=== PATIENT | female | born 1940 | race Caucasian/White ===

== ENCOUNTER 2017-12-22 01:24 | Inpatient (IN) | payer OTHER, MEDICAID ==
[~2017-12-22] VITALS: Ht 157.5 cm; Wt 173.7 kg
[2017-12-22] VITALS (7 sets, daily range): BP systolic 108–149
--- NOTE | 2017-12-22 01:30 | NUR ---
Patient to ER bed 6 to gown for evaluation. Side rails up.
--- NOTE | 2017-12-22 01:35 | NUR ---
ED MD Handley at bedside for medical evaluation.
--- NOTE | 2017-12-22 01:40 | NUR ---
Patient to ER via EMT ambulance sent in from [facility] for evaluation of abnormal labs and swelling to her legs. Patient is awake, alert and oriented in no acute distress, vital signs stable, respirations even and unlabored, skin warm and dry to touch. Patient has been seen and evaluated by Dr Handley. Will continue to observe and assess. Patient on quality assurance monitor final, BP monitor and pulse oximeter.
--- NOTE | 2017-12-22 01:50 | NUR ---
#22 gauge angiocath placed to right hand. Use of asceptic technique. Opsite placed over site. Blood return noted. Blood for lab drawn from site. Flushed with 10 cc of normal saline. No evidence of infiltration noted. Patient tolerated well.
[2017-12-22] MEDS ORDERED: PIOG30TA70 PO (02:07)
[2017-12-22] MEDS ORDERED: NEU300 PO (02:07)
[2017-12-22] MEDS ORDERED: METO25TA6 PO (02:07)
[2017-12-22] MEDS ORDERED: SIMV10TA2 PO (02:07)
[2017-12-22] MEDS ORDERED: Voltaren Gel 1 % TD (02:07)
[2017-12-22] MEDS ORDERED: MULT1CAP34 PO (02:07)
[2017-12-22] MEDS ORDERED: MOM PO (02:07)
[2017-12-22] MEDS ORDERED: BUME2TAB3 PO (02:07)
[2017-12-22] MEDS ORDERED: BENZ1LOZ58 MM (02:07)
[2017-12-22] MEDS ORDERED: CRAN450C PO (02:07)
[2017-12-22] MEDS ORDERED: RIVA20TA PO (02:07)
[2017-12-22] MEDS ORDERED: DIPH25CA83 PO (02:07)
[2017-12-22] MEDS ORDERED: ESCI10TA PO (02:07)
[2017-12-22] MEDS ORDERED: CALC-823 PO (02:07)
[2017-12-22] MEDS ORDERED: GUAI5SYR PO (02:07)
[2017-12-22] MEDS ORDERED: ACET-2634 PO (02:07)
[2017-12-22] MEDS ORDERED: TRAMADOL HCL PO (02:07)
[2017-12-22] MEDS ORDERED: HYDR-2489 PO (02:07)
[2017-12-22] MEDS ORDERED: FURO-149 PO (02:07)
[2017-12-22] MEDS ORDERED: POTA8TAB4 PO (02:07)
[2017-12-22] MEDS ORDERED: IPRA3AMP9 INH (02:07)
--- NOTE | 2017-12-22 02:07 | NUR ---
Radiology at bedside for CXR.
--- NOTE | 2017-12-22 02:07 | NUR ---
Medication reconciliation completed with information provided by facility. Any prior medication reconciliation on file was reviewed and corrected.
--- NOTE | 2017-12-22 02:20 | NUR ---
# 14 FR In and Out catheter with use of sterile technique. Immediate return of 300 ml yellow urine noted. Urine sample collected and sent to lab. Pt tolerated procedure well. Patient unable to toilet self.
[2017-12-22 02:26] LABS: BASOPHILS % (AUTO) 1.1 % (0.0-2.0); EOSINOPHILS # (AUTO) 0.2 K/uL (0.0-0.4); EOSINOPHILS % (AUTO) 4.5 % (0.0-4.0); HEMATOCRIT 43.2 % (36-48); LYMPHOCYTES # (AUTO) 1.4 K/uL (1.0-5.5); LYMPHOCYTES % (AUTO) 30.7 % (20.5-51.5); MEAN CORPUSCULAR HEMOGLOBIN 33 pg (27-31); MEAN CORPUSCULAR HGB CONC 32 % (32-36); MEAN CORPUSCULAR VOLUME 100 fL (79.0-98.0); MONOCYTES # (AUTO) 0.4 K/uL (0.0-1.0); MONOCYTES % (AUTO) 10.1 % (1.7-9.3); NEUTROPHILS # (AUTO) 2.4 K/uL (1.8-7.7); NEUTROPHILS % (AUTO) 53.6 % (40.0-70.0); PLATELET COUNT (AUTO) 132 K/uL (130-430); RED BLOOD CELL COUNT(AUTO) 4.31 MIL/uL (4.2-6.2); WHITE BLOOD COUNT (AUTO) 4.4 K/uL (4.8-10.8)
--- NOTE | 2017-12-22 02:30 | NUR ---
Vascular supervisor microbiology technologists at bedside for exam. Awaiting results and dispo.
[2017-12-22 03:04] LABS: BILIRUBIN,URINE NEGATIVE (NEGATIVE); BLOOD, URINE NEGATIVE (NEGATIVE); CLARITY/URINE CLEAR (CLEAR); COLOR,URINE YELLOW (YELLOW); GLUCOSE,URINE NEGATIVE (NEGATIVE); KETONES,URINE NEGATIVE (NEGATIVE); LEUKOCYTE ESTERASE ,URINE NEGATIVE (NEGATIVE); NITRITE, URINE NEGATIVE (NEGATIVE); PROTEIN URINE NEGATIVE (NEGATIVE); UROBILINOGEN,URINE 0.2 (0.2-1.0)
[2017-12-22 03:20] LABS: ANION GAP 4 (5-15); CALCIUM 8.9 mg/dL (8.4-11.0); CHLORIDE 97 mmol/L (98-107); CREATININE 2.51 mg/dL (0.55-1.30); GLUCOSE 121 mg/dL (70-99); POTASSIUM 5.3 mmol/L (3.5-5.1); SODIUM SERUM 134 mmol/L (136-145)
--- NOTE | 2017-12-22 03:20 | NUR ---
Recieved report from Bala EPSTEIN. Will assume care at this time.
[2017-12-22 03:31] LABS: ALANINE AMINOTRANSFERASE 12 U/L (12-78); ASPARTATE AMINOTRANSFERASE 15 U/L (10-37); TOTAL BILIRUBIN 0.5 mg/dL (0.0-1.0)
[2017-12-22 03:36] LABS: INR 1.3 (0.8-1.2); UREA NITROGEN, BLOOD 104 mg/dL (8-21)
[2017-12-22 03:38] LABS: PROTHROMBIN TIME 13.7 SECS (9.5-12.5)
--- NOTE | 2017-12-22 04:00 | NUR ---
Patient resting quietly in bed. Verbalizes no need at this time. Appears in no acute distress.
--- NOTE | 2017-12-22 04:13 | NUR ---
End of life care decisions discussed with patient by Dr. Handley. Opportunity for questions and concerns addressed. Patient's code status is Full code paperwork completed and placed in chart.
[2017-12-22] MEDS ORDERED: NACL 0.9% 1,000 ML IV ONE (04:21)
[2017-12-22] MEDS ORDERED: INSULIN ASPART 100 UNITS/ML, 10 ML VIAL (NovoLOG) SUBCUT PRN (04:30)
--- NOTE | 2017-12-22 04:46 | NUR ---
ADMISSION NOTE Received patient from ER via gurney. Patient admitted with diagnosis of Abnormal Labs. Patient is awake, alert, oriented X 4. Patient oriented to hospital room, call light, toileting, pain management and safety-teach back done. Patient informed that Daniela will be her nurse and that their room number is 120-A. Personal belongings checked and Belongings List documented. Call light within reach.
--- NOTE | 2017-12-22 04:50 | NUR ---
Patient will be admitted to care of Dr. Howard. Admitted to Telemetry unit. Will go to room 120A. Belongings list completed. Summary report printed. Report will be given at bedside. Transfer to telemetry via ACLS protocol. Licensed nurse present. IV present no signs or symptoms of infiltration.
--- NOTE | 2017-12-22 05:15 | NUR ---
OPENING NOTE Received report from Kiah. Patient resting in bed awake, alert, oriented x4. Fall, safety, aspiration precautions in place. Bed in lowest position, brake on, alarm on, call light within reach. Will continue to monitor.
--- NOTE | 2017-12-22 05:41 | NUR ---
CONSULTATION PAGED/CALLED Reason for Consultation: ARF, HYPER [place]AL[place]IA Person Who was Notified: DANA Consulting Physician: DR. HORAN; ON-CALL DR. RESENDIZ Ordering Physician: DR. WIGGINS
[2017-12-22] MEDS ORDERED: MILK OF MAGNESIA 30 ML UDC PO PRN (06:00)
[2017-12-22] MEDS ORDERED: ACETAMINOPHEN 500 MG TABLET PO PRN (06:00)
--- NOTE | 2017-12-22 06:00 | NUR ---
Called [facility] and spoke to Ernestine. Per Ernestine, shingles has been resolved on right abd, patient not in isolation at facility. Patient received flu shot on 10/20/17.
[2017-12-22] MEDS ORDERED: HYDROcodone/ACETAMIN 10-325 MG TAB PO PRN (06:15)
[2017-12-22 07:15] LABS: ANION GAP 8 (5-15); CALCIUM 8.7 mg/dL (8.4-11.0); CHLORIDE 98 mmol/L (98-107); CREATININE 2.39 mg/dL (0.55-1.30); GLUCOSE 99 mg/dL (70-99); POTASSIUM 4.7 mmol/L (3.5-5.1); SODIUM SERUM 137 mmol/L (136-145); UREA NITROGEN, BLOOD 100 mg/dL (8-21)
--- NOTE | 2017-12-22 07:54 | NUR ---
CLOSING NOTE Gave report to Marisel. Patient resting in bed awake, alert, oriented x4, eating breakfast. Breathing unlabored and even on room air. No signs of distress, no needs at this time. Fall and safety precautions in place. Bed in lowest position, brake on, alarm on, call light within reach. IVF infusing as ordered. Endorsed care to day shift nurse.
[2017-12-22] MEDS ORDERED: DEXTROSE 50%-WATER 50 ML DISP.SYRIN IVP PRN ×2 (08:00)
[2017-12-22] MEDS ORDERED: GLUCOSE 15 GM GEL (in 37.5 GM TUBE) PO PRN ×2 (08:00)
--- NOTE | 2017-12-22 08:05 | NUR ---
INITIAL ROUNDS Received pt AAOx4, no s/s resp distress, very mild c/o pain-tolerable per pt-stated from the shingles. Plan of care for the day reviewed with pt-she verbalized her understanding. Noted dressing to lower right buttocks, right calf and behind left knee-all clean, dry and intact. Noted edema to BLE. Pain management, disease process, skin and safety discussed teach back done. Pt placed on bed hathaway and voided-states she does not walk and uses a Yumiko lift to get into wheelchair at [facility]. Dr. Howard here and examining pt. Call light within reach.
[2017-12-22] MEDS ORDERED: ACETAMINOPHEN 650 MG/20.3 ML UDC PO PRN (08:30)
[2017-12-22] MEDS ORDERED: RIVAROXABAN 10 MG TABLET PO SCH (09:00)
[2017-12-22] MEDS: DIPHENHYDRAMINE HCL 25 MG CAPSULE PO PRN (09:31)
[2017-12-22] MEDS: CITALOPRAM HYDROBROMIDE 20 MG TABLET PO SCH (09:32)
[2017-12-22] MEDS: METOPROLOL TARTRATE 25 MG TABLET PO SCH ×2 (09:32→21:27)
[2017-12-22] MEDS: ENOXAPARIN SODIUM 30 MG/0.3 ML SYRINGE SUBCUT SCH (09:33)
[2017-12-22] MEDS: HYDROcodone/ACETAMIN 10-325 MG TAB PO PRN ×2 (09:38→18:57)
[2017-12-22] MEDS: NACL 0.9% 1,000 ML IV SCH ×2 (09:39→19:08)
--- NOTE | 2017-12-22 10:11 | NUR ---
Nutrition Update Karri Scale 12 noted. Pt admitted for ARF. Diet: [facility] BMI: 69 kg/m2 RD to follow per nutrition care standards.
--- NOTE | 2017-12-22 12:20 | NUR ---
ROUNDS Pt resting quietly in bed, cough noted-will request breathing treatments for pt. Pt's daughter at bedside. Pt continues to c/o sporadic itchiness. Pt placed on bedpan and voided. Pt cleaned up and repositioned for skin care and comfort. Needs met, call light within reach.
[2017-12-22] MEDS: IPRATROPIUM/ALBUTEROL SULFATE 3 ML AMPUL.NEB (DUONEB) INH PRN ×2 (13:15→19:42)
--- NOTE | 2017-12-22 13:25 | NUR ---
ROUNDS Pt resting quietly in bed with no s/s resp distress, pt with cough-pt requesting a breathing treatment-RT called and are coming now. No c/o pain or discomfort. Pt's daughter at bedside and requesting for Dr. Howard to call her with an update on her mom's condition.-note left on outside of chart for MD. Call light within reach.
--- NOTE | 2017-12-22 16:30 | NUR ---
ROUNDS Pt resting quietly with no s/s resp distress, no c/o pain or discomfort. No changes. Call light within reach.
[2017-12-22] MEDS: SIMVASTATIN 10 MG TABLET PO SCH (18:55)
[2017-12-22] MEDS: GABAPENTIN 300 MG CAPSULE PO SCH (18:55)
--- NOTE | 2017-12-22 19:10 | NUR ---
CLOSING NOTE Pt in bed with no s/s resp distress, c/o pain to her left shoulder and chest area-pt given [place] as ordered. Pt placed on bedpan to void. Needs met, call light within reach.
--- NOTE | 2017-12-22 19:50 | NUR ---
Opening notes Pt asleep, easily arousable. VSS, afebrile No acute distress noted. Pt had a breathing txmt. Pt denies pain at this time. Pt on low air mattress. IV fluids infusing on R. hand 22G no infiltration noted. Bed low, locked. Call light within easy reach. Will continue to monitor.
--- NOTE | 2017-12-22 21:00 | NUR ---
Wound care Pt AAO. Dressing to Right posterior upper thigh came off. Applied foam dressing. Dressing to R. calf blister and posterior knee C/D/I. Interdry dressing applied to margarita underarms, margarita breast folds and margarita abd folds. L arm bruising noted intact. Will continue to monitor.
--- NOTE | 2017-12-22 21:30 | NUR ---
Accucheck Blood sugar checked 146. No indication for insulin per protocol. Will continue to monitor.
[2017-12-23 00:10] VITALS: BP_SYST 134
--- NOTE | 2017-12-23 01:40 | NUR ---
Hearing Aids Pt has margarita Hearing aids at the bedside.
[2017-12-23] MEDS: HYDROcodone/ACETAMIN 10-325 MG TAB PO PRN ×2 (03:39→11:17)
--- NOTE | 2017-12-23 03:39 | NUR ---
Pain mgmt Pt asleep, easily arousable. Pt c/o Pain L. shoulder 10/20, medicated with [place] 10/325mg as needed. Call light within easy reach. To monitor.
[2017-12-23] MEDS: NACL 0.9% 1,000 ML IV SCH ×2 (03:52→07:57)
--- NOTE | 2017-12-23 06:19 | NUR ---
Closing notes Pt asleep, easily arousable. No s/s distress noted. Accucheck 113, no indication for insulin per protocol. NS infusing on R. hand 22G no infiltration noted. Phani hearing aid at bedside. Pt incontinent of urine, pericare provided as needed. Pt able to assist with turning. Call light within reach. To endorse to am nurse.
[2017-12-23 06:47] LABS: BASOPHILS % (AUTO) 0.8 % (0.0-2.0); EOSINOPHILS # (AUTO) 0.1 K/uL (0.0-0.4); EOSINOPHILS % (AUTO) 2.6 % (0.0-4.0); HEMATOCRIT 42.9 % (36-48); HEMOGLOBIN 13.7 g/dL (12.0-16.0); LYMPHOCYTES # (AUTO) 0.8 K/uL (1.0-5.5); MEAN CORPUSCULAR HEMOGLOBIN 32 pg (27-31); MEAN CORPUSCULAR HGB CONC 32 % (32-36); MEAN CORPUSCULAR VOLUME 100 fL (79.0-98.0); MONOCYTES # (AUTO) 0.5 K/uL (0.0-1.0); MONOCYTES % (AUTO) 10.5 % (1.7-9.3); NEUTROPHILS # (AUTO) 2.9 K/uL (1.8-7.7); NEUTROPHILS % (AUTO) 67.1 % (40.0-70.0); PLATELET COUNT (AUTO) 128 K/uL (130-430); RED BLOOD CELL COUNT(AUTO) 4.29 MIL/uL (4.2-6.2); RED CELL DISTRIBUTION WIDTH 14.1 % (9.0-15.0); WHITE BLOOD COUNT (AUTO) 4.3 K/uL (4.8-10.8)
[2017-12-23 07:08] LABS: ALANINE AMINOTRANSFERASE 15 U/L (12-78); ALBUMIN 3.1 g/dL (3.4-4.8); ANION GAP 7 (5-15); ASPARTATE AMINOTRANSFERASE 16 U/L (10-37); CALCIUM 8.9 mg/dL (8.4-11.0); CHLORIDE 100 mmol/L (98-107); CREATININE 1.94 mg/dL (0.55-1.30); GLUCOSE 118 mg/dL (70-99); POTASSIUM 4.6 mmol/L (3.5-5.1); SODIUM SERUM 136 mmol/L (136-145); TOTAL BILIRUBIN 0.4 mg/dL (0.0-1.0); UREA NITROGEN, BLOOD 84 mg/dL (8-21)
[2017-12-23] MEDS: IPRATROPIUM/ALBUTEROL SULFATE 3 ML AMPUL.NEB (DUONEB) INH PRN (07:21)
--- NOTE | 2017-12-23 07:40 | NUR ---
AM NOTES: PATIENT AWAKE, ALERT, ORIENTED AND LYING IN BED. SIT UP FOR BREAKFAST. DENIES ANY PAIN, SHORTNESS OF BREATH OR CHEST PAIN. BED REST, IVF INFUSING WELL. BRUISES NOTED IN BOTH ARMS. SAFETY PRECAUTIONS OBSERVED. CALL LIGHT IN REACH, BED ALARM ON AND ENCOURAGE TO CALL FOR HELP NEEDED.
[2017-12-23 08:00] VITALS: BP_SYST 154
--- NOTE | 2017-12-23 08:00 | NUR ---
NOTES: OS SATURATION IS RANGING 88-90% IN ROOM AIR. APPLIED O2 2L/MIN, JUST HAD BREATHING TREATMENT. PT HAVE COUGH AND WHEEZES.
[2017-12-23] MEDS: METOPROLOL TARTRATE 25 MG TABLET PO SCH ×2 (08:43→20:53)
[2017-12-23] MEDS: CITALOPRAM HYDROBROMIDE 20 MG TABLET PO SCH (08:43)
[2017-12-23] MEDS: ENOXAPARIN SODIUM 30 MG/0.3 ML SYRINGE SUBCUT SCH (08:44)
--- NOTE | 2017-12-23 08:52 | NUR ---
IVF NOTES; CHANGED IVF RATE TO 50ML/HR ORDERED.
--- NOTE | 2017-12-23 10:20 | NUR ---
RN ROUNDS: PATIENT IN BED, WITH EYES CLOSED. NO SIGNS OF DISTRESS, BREATHING IS UNLABORED. WILL CONTINUE TO MONITOR.
--- NOTE | 2017-12-23 11:53 | NUR ---
NOTES: ASSISTED PT ON BED MARTIN AND VOIDING WELL AROUND 250ML. CLEANED AND REPOSITIONED. CHANGED DRESSING ON ALL WOUNDS.
[2017-12-23 12:05] VITALS: BP_SYST 120
--- NOTE | 2017-12-23 14:30 | NUR ---
IV NOTES: PATIENT IV WAS PULLED OUT, STARTED NEW ONE ON RIGHT FOREARM WITH GAUGE 24 X 1 ATTEMPT.
[2017-12-23] MEDS: DIPHENHYDRAMINE HCL 25 MG CAPSULE PO PRN (14:44)
--- NOTE | 2017-12-23 15:00 | NUR ---
MD ROUNDS DR. WIGGINS HERE AND MAKING ROUNDS. REMIND DR. WIGGINS TO CALL PT'S DAUGHTER.
[2017-12-23 16:39] VITALS: BP_SYST 115
[2017-12-23] MEDS: SIMVASTATIN 10 MG TABLET PO SCH (17:44)
[2017-12-23] MEDS: GABAPENTIN 300 MG CAPSULE PO SCH (17:44)
--- NOTE | 2017-12-23 18:48 | NUR ---
CLOSING NOTES IN BED, EATING DINNER. IVF INFUSING WELL. NO ACUTE DISTRESS NOTED. ALL NEEDS MEET. NEEDS ATTENDED. ENDORSE.
--- NOTE | 2017-12-23 19:15 | NUR ---
OPENING NOTE Patient resting on the bed and receiving breathing treatment. Skin warm and dry to touch. IV intact to RFA, no redness, no swelling, no drainage. On NS at 50ml/hr, infusing well. On contact isolation for MRSA of nares. Safety measure maintained. Bed locked in low position, side rails up, bed alarm on. Call light within reached. Will continue to monitor.
[2017-12-23 20:00] VITALS: BP_SYST 113
[2017-12-23] MEDS: DOXYCYCLINE HYCLATE 100 MG CAPSULE PO SCH (20:51)
[2017-12-23] MEDS: MUPIROCIN 2% TOPICAL OINTMENT 22 GM NS SCH (20:54)
[2017-12-23] MEDS ORDERED: DOXYCYCLINE HYCLATE 100 MG CAPSULE PO SCH (21:00)
--- NOTE | 2017-12-23 21:00 | NUR ---
SN=[id number], NO INSULIN COVERAGE NEEDED PER SLIDING SCALE.
--- NOTE | 2017-12-23 22:15 | NUR ---
ROUND Patient resting on the bed with eyes closed. No acute distress. Respiration even and unlabored. On O2 2L/min via NC. IV intact, IVF infusing well. On contact isolation. Safety measure maintained. Bed locked in low position, side rails up, bed alarm on. Call light within reached. Continue to monitor.
--- NOTE | 2017-12-24 00:05 | NUR ---
TURNED AND REPOSITIONED PATIENT After cleaned patient, turned and repositioned done. No acute distress. Continue on O2 2L/min via NC. IV intact, IVF infusing well. Contact isolation maintained. Safety measure maintained. Call light within reached. Bed locked in low position, side rails up, bed alarm on. Continue to monitor.
[2017-12-24 00:28] VITALS: BP_SYST 130
--- NOTE | 2017-12-24 02:20 | NUR ---
ROUND Patient resting on the bed with eyes closed. No acute distress. Respiration even and unlabored. On O2 2L/min via NC. IV intact, IVF infusing well. On contact isolation precaution. Safety measure maintained. Bed locked in low position, side rails up, bed alarm on. Call light within reached. Continue to monitor.
--- NOTE | 2017-12-24 04:00 | NUR ---
TURNED AND REPOSITIONED PATIENT Turned and repositioned done. No acute distress. Continue on O2 2L/min via NC. IV intact, IVF infusing well. Contact isolation maintained. Safety measure maintained. Call light within reached. Bed locked in low position, side rails up, bed alarm on. Continue to monitor.
[2017-12-24] MEDS: HYDROcodone/ACETAMIN 10-325 MG TAB PO PRN ×2 (05:31→22:58)
--- NOTE | 2017-12-24 05:32 | NUR ---
NORCO GIVEN Patient c/o generalized pain /, [place] 10/325mg 1tab Po given as ordered. No acute distress. Respiration even and unlabored. IV intact, IVF infusing well. Continue on contact isolation. Safety measure maintained. Bed locked in low position, side rails up, bed alarm on. Call light within reached. Continue to monitor.
[2017-12-24 06:29] LABS: BASOPHILS % (AUTO) 0.6 % (0.0-2.0); EOSINOPHILS # (AUTO) 0.2 K/uL (0.0-0.4); EOSINOPHILS % (AUTO) 2.6 % (0.0-4.0); HEMATOCRIT 39.2 % (36-48); HEMOGLOBIN 12.7 g/dL (12.0-16.0); LYMPHOCYTES # (AUTO) 1.1 K/uL (1.0-5.5); LYMPHOCYTES % (AUTO) 18.3 % (20.5-51.5); MEAN CORPUSCULAR HEMOGLOBIN 32 pg (27-31); MEAN CORPUSCULAR HGB CONC 32 % (32-36); MEAN CORPUSCULAR VOLUME 101 fL (79.0-98.0); MONOCYTES # (AUTO) 0.5 K/uL (0.0-1.0); MONOCYTES % (AUTO) 9.3 % (1.7-9.3); NEUTROPHILS % (AUTO) 69.2 % (40.0-70.0); PLATELET COUNT (AUTO) 129 K/uL (130-430); RED CELL DISTRIBUTION WIDTH 14.3 % (9.0-15.0); WHITE BLOOD COUNT (AUTO) 5.8 K/uL (4.8-10.8)
--- NOTE | 2017-12-24 06:55 | NUR ---
CLOSING NOTE Patient resting on the bed. No acute distress. Odd O2 at this time. Patient removed herself. Skin warm and dry to touch. IV intact to RFA, no redness, no swelling, no drainage. On NS at 50ml/hr, infusing well. On contact isolation for MRSA of nares. All needs met. Hourly rounding during shift. Safety measure maintained. Bed locked in low position, side rails up, bed alarm on. Call light within reached. Will endorse to morning shift nurse.
[2017-12-24] MEDS: NACL 0.9% 1,000 ML IV SCH ×2 (06:56→22:53)
[2017-12-24 07:09] LABS: ALANINE AMINOTRANSFERASE 18 U/L (12-78); ALBUMIN 2.9 g/dL (3.4-4.8); ANION GAP 6 (5-15); ASPARTATE AMINOTRANSFERASE 19 U/L (10-37); CALCIUM 8.5 mg/dL (8.4-11.0); CHLORIDE 103 mmol/L (98-107); CREATININE 1.96 mg/dL (0.55-1.30); GLUCOSE 103 mg/dL (70-99); POTASSIUM 5.5 mmol/L (3.5-5.1); SODIUM SERUM 137 mmol/L (136-145); TOTAL BILIRUBIN 0.4 mg/dL (0.0-1.0); UREA NITROGEN, BLOOD 85 mg/dL (8-21)
[2017-12-24] MEDS: IPRATROPIUM/ALBUTEROL SULFATE 3 ML AMPUL.NEB (DUONEB) INH PRN (07:27)
--- NOTE | 2017-12-24 07:40 | NUR ---
Notes patient resting in bed, still wants to sleep and refusing to eat for now, breathing treatment ongoing, IV fluids infusing well, no acute distress noted, bed alarm on, call light within reach, encouraged patient to call as needed.
[2017-12-24 08:00] VITALS: BP_SYST 102
--- NOTE | 2017-12-24 08:46 | NUR ---
Spoke to Dr. Abreu re lab results/ new orders received
[2017-12-24] MEDS ORDERED: SODIUM POLYSTYRENE SULFONATE 15 GM/60 ML UDBTL PO ONE (09:00)
[2017-12-24] MEDS: MUPIROCIN 2% TOPICAL OINTMENT 22 GM NS SCH ×2 (09:31→22:52)
[2017-12-24] MEDS: ENOXAPARIN SODIUM 30 MG/0.3 ML SYRINGE SUBCUT SCH (09:32)
[2017-12-24] MEDS: DOXYCYCLINE HYCLATE 100 MG CAPSULE PO SCH ×2 (09:33→22:51)
[2017-12-24] MEDS: CITALOPRAM HYDROBROMIDE 20 MG TABLET PO SCH (09:33)
[2017-12-24] MEDS: METOPROLOL TARTRATE 25 MG TABLET PO SCH ×2 (09:34→22:52)
--- NOTE | 2017-12-24 10:14 | NUR ---
Notes assisted patient with bed hathaway, patient voided with good amount of urine, cleaned and repositioned for comfort, denies any pain or discomfort, bed in lowest position, call light within reach, bed alarm on, fall and aspiration precautions in place, wants to rest at this time, will continue to monitor.
--- NOTE | 2017-12-24 12:21 | NUR ---
Notes patient resting in bed, blood glucose check completed, patient denies any pain or acute distress, will continue to monitor, bed in lowest position, bed alarm on, bed close to nursing station, call light within reach, fall and aspiration precautions in place.
[2017-12-24 12:40] VITALS: BP_SYST 103
--- NOTE | 2017-12-24 14:15 | NUR ---
Notes patient resting in bed, denies any pain or distress, will continue to monitor, bed in lowest position, bed alarm on, bed close to nursing station, three side rails up, fall and aspiration precautions in place.
--- NOTE | 2017-12-24 14:49 | NUR ---
MD rounds Dr. Howard here making rounds, made aware that patient is having wheezing and cough that is moist and is still on IV fluids.
--- NOTE | 2017-12-24 14:54 | NUR ---
Notes MD informed about [place] medications for severe and moderate pain, per MD to keep the order the same.
[2017-12-24] MEDS ORDERED: FUROSEMIDE 40 MG/4 ML VIAL IVP ONE (15:00)
--- NOTE | 2017-12-24 15:11 | NUR ---
Notes spoke to radiology staff, made aware that Dr. Howard wants the x-ray result for today.
--- NOTE | 2017-12-24 15:14 | NUR ---
CONSULT REASON FOR CONSULT: CHF PERSON WHO WAS NOTIFIED: [facility] CONSULTING PHYSICIAN: DR. TOWNSEND/ DR. SLOAN BOG WORKER FOR DR. TOWNSEND VEGETABLE INSPECTOR PHONE NUMBER: [phone] ORDERING PHYSICIAN: DR. WIGGINS
--- NOTE | 2017-12-24 15:53 | NUR ---
Dietitian Recommendations * Recommend CCHO, cardiac diet per LP, RD Please refer to Nutrition Assessment for details.
--- NOTE | 2017-12-24 16:22 | NUR ---
Spoke to Dr. Howard about abnormal ABGs with new orders received.
[2017-12-24 16:53] VITALS: BP_SYST 119
--- NOTE | 2017-12-24 16:55 | NUR ---
Paged Dr. Howard regarding chest x-ray results.
--- NOTE | 2017-12-24 17:43 | NUR ---
Spoke with Dr. Howard regarding chest x-ray, made aware of findings.
--- NOTE | 2017-12-24 17:43 | NUR ---
MD rounds Dr. Eduardo and Dr. Aviles seen patient.
[2017-12-24] MEDS: SIMVASTATIN 10 MG TABLET PO SCH (17:51)
[2017-12-24] MEDS: GABAPENTIN 300 MG CAPSULE PO SCH (17:51)
--- NOTE | 2017-12-24 18:02 | NUR ---
CONSULT REASON FOR CONSULT: ABNORMAL ABGs PERSON WHO WAS NOTIFIED: [facility] CONSULTING PHYSICIAN: DR. TURNER FRUIT OR NUT FARM WORKER PHONE NUMBER: [phone] ORDERING PHYSICIAN: DR. WIGGINS
--- NOTE | 2017-12-24 18:39 | NUR ---
Closing note patient resting in chair, denies any pain or shortness of breath or distress, all needs met throughout shift, will endorse report to oncoming nurse, bed in lowest position, bed alarm on, two side rails up, call light within reach, fall and aspiration precautions in place, bed close to the nursing station.
[2017-12-24 20:01] VITALS: BP_SYST 123
--- NOTE | 2017-12-24 22:15 | NUR ---
PATIENT AWAKE ASSIST FOR BED MARTIN REPOSITION FROM SIDE TO SIDE , LOW WEIGHT LOSS AIR MATRES KEPT CLEAN & DRY NEEDED .
--- NOTE | 2017-12-25 | NUR ---
NORCO 10/325 MG PO ADMINISTER FOR GENERAL DISCOMFORT & HELPFUL OFF LOADING WITH PILLOWS IMPLEMENTED & TOLERATED .
[2017-12-25 00:10] VITALS: BP_SYST 120
[2017-12-25] MEDS: IPRATROPIUM/ALBUTEROL SULFATE 3 ML AMPUL.NEB (DUONEB) INH SCH ×4 (00:56→19:47)
--- NOTE | 2017-12-25 02:48 | NUR ---
Patient on Bi Pap awake on and off HOB kept elevated verbally Responsive chest - movement symmetrical unlabored .
--- NOTE | 2017-12-25 02:52 | NUR ---
Hourly Rounding patient Resting skin dry warm call benjamin with patient .
--- NOTE | 2017-12-25 02:53 | NUR ---
WOUND CARE TO LEFT POSTERIOR KNEE AREA SKIN FOLD OPTI FOAM DSD , APPLIED , SKIN BREAK DOWN IS NOTED .
--- NOTE | 2017-12-25 02:54 | NUR ---
WOUND CARE RIGHT MEDIAL THIGH MADDI AREA SKIN FOLD OPTI FOAM DSD APPLIED , SKIN BREAK DOWN IS NOTED , PATIENT TOLERATED .
--- NOTE | 2017-12-25 03:00 | NUR ---
Z GUARD OINTMENT APPLIED TO SKIN BREAK DOWN BUTTOCKS AREAS , POSITION CHANGE ON SCHEDULE TOLERATED .
--- NOTE | 2017-12-25 05:03 | NUR ---
Reposition & TURNING of patient off loading with pillows heels floating comfort measures tolerated & helpful , PT alert & oriented call benjamin with patient .
[2017-12-25 07:15] VITALS: BP_SYST 128
--- NOTE | 2017-12-25 08:05 | NUR ---
INITIAL NOTE PT RESTING, EASY TO AROUSE, RECEIVING BREATHING TREATMENT AT THIS TIME. NO S/S OF ACUTE DISTRESS OR PAIN. PT FIRST ALLOWED VITALS TO BE TAKEN AND THEN REFUSED BLOOD PRESSURE TO BE TAKEN, STATES IT GETS TOO TIGHT AND HURTS. WILL ATTEMPT TO TAKE BLOOD PRESSURE AT LATER TIME. IVF INFUSING TO RFA 24 GG AT ORDERED RATE. GENERALIZED EDEMA NOTED. CALL LIGHT WITHIN REACH, SAFETY PRECAUTIONS IN PLACE, WILL FOLLOW UP
[2017-12-25 08:16] LABS: BASOPHILS % (AUTO) 0.6 % (0.0-2.0); EOSINOPHILS # (AUTO) 0.1 K/uL (0.0-0.4); HEMATOCRIT 37.8 % (36-48); HEMOGLOBIN 12.4 g/dL (12.0-16.0); LYMPHOCYTES # (AUTO) 1.1 K/uL (1.0-5.5); LYMPHOCYTES % (AUTO) 26.4 % (20.5-51.5); MEAN CORPUSCULAR HEMOGLOBIN 33 pg (27-31); MEAN CORPUSCULAR HGB CONC 33 % (32-36); MEAN CORPUSCULAR VOLUME 100 fL (79.0-98.0); MONOCYTES # (AUTO) 0.5 K/uL (0.0-1.0); MONOCYTES % (AUTO) 11.3 % (1.7-9.3); NEUTROPHILS # (AUTO) 2.6 K/uL (1.8-7.7); NEUTROPHILS % (AUTO) 59.7 % (40.0-70.0); PLATELET COUNT (AUTO) 123 K/uL (130-430); RED BLOOD CELL COUNT(AUTO) 3.79 MIL/uL (4.2-6.2); RED CELL DISTRIBUTION WIDTH 14.3 % (9.0-15.0); WHITE BLOOD COUNT (AUTO) 4.3 K/uL (4.8-10.8)
[2017-12-25 08:17] VITALS: BP_SYST 128
[2017-12-25] MEDS: DOXYCYCLINE HYCLATE 100 MG CAPSULE PO SCH ×2 (09:09→22:43)
[2017-12-25] MEDS: MUPIROCIN 2% TOPICAL OINTMENT 22 GM NS SCH ×2 (09:09→22:44)
[2017-12-25] MEDS: METOPROLOL TARTRATE 25 MG TABLET PO SCH ×2 (09:10→22:43)
[2017-12-25] MEDS: CITALOPRAM HYDROBROMIDE 20 MG TABLET PO SCH (09:10)
--- NOTE | 2017-12-25 09:10 | NUR ---
DR JOHNNY CHEEK, MADE AWARE OF PT CRITICAL ABG RESULTS, MD PREVIOUSLY PAGED TO REPORT RESULTS, NO CALL BACK. MADE AWARE WHEN ROUNDING BEFORE SECOND PAGE. NO NEW ORDER RECEIVED
[2017-12-25] MEDS: ENOXAPARIN SODIUM 30 MG/0.3 ML SYRINGE SUBCUT SCH (09:11)
[2017-12-25 09:14] LABS: ANION GAP 9 (5-15); CHLORIDE 104 mmol/L (98-107); GLUCOSE 110 mg/dL (70-99); POTASSIUM 4.5 mmol/L (3.5-5.1); SODIUM SERUM 142 mmol/L (136-145)
[2017-12-25 09:15] LABS: CALCIUM 8.8 mg/dL (8.4-11.0); CREATININE 1.61 mg/dL (0.55-1.30); UREA NITROGEN, BLOOD 80 mg/dL (8-21)
--- NOTE | 2017-12-25 09:58 | NUR ---
DR KRISTIAN CHEEK, UPDATED ON PT STATUS, WILL CARRY OUT ANY NEW ORDERS
--- NOTE | 2017-12-25 11:00 | NUR ---
WOUND EVALUATION: Late note for 1100 secondary to patient care. Wound Consult received from Dr. Howard. Thank you, Dr. Howard, for the consult. Patient received in a [place] Bed with an Isoflex CATIE mattress, with low air loss therapy initiated, awake, alert, and oriented. Patient is unable to turn independently. Karri Score is a 14. Past Medical History: Hypertension, Diabetes Mellitus, Morbid Obesity, Herpes [place], Appendectomy, Cholecystectomy, CHF. Recent Labs: WBC 4.3, RBC 3.79, hemoglobin 12.4, hematocrit 37.8, platelets 123, BUN 80, creatinine 1.61, glucose 110, BNP 588, albumin 2.9, PT 13.7, INR 1.3, PTT 35.6. Microbiology: Blood culture results 2 in progress. MRSA screen results positive. Intrinsic factors that delay wound healing: Diabetes mellitus, CHF, hypoalbuminemia. Extrinsic factors that delay wound healing: Very limited mobility. Wound Assessment: 1. Left posterior knee: Intertrigo wound, present on admission. Wound bed has 100% red tissue. No odor, scant serous drainage. Periwound moist. Wound measures 0.5 cm x 2.0 cm. Recommend: Cleanse wound with normal saline. Pat dry. Apply moisture barrier cream to wound and hien-wound. Apply hydrogel to any portion of wound bed not covered by moisture barrier cream. Place foam dressing onto wound. Insert Inter-Dry AG dressing, cut to size, into knee fold. Perform wound care daily, and as needed for dressing soiling or dislodgment. Replace Inter-Dry AG dressings every 5 days, and as needed for dressing soiling or dislodgment. 2. Right medial proximal calf: Lesion, present on admission. Dry, stable. Measures 1.9 cm x 1.0 cm. Recommend: No dressing needed. Continue to monitor site for worsening condition every shift. 3. Right lateral abdominal fold: Intertrigo wound, present on admission. Wound bed has 100% yellow tissue. No odor, scant serous drainage. Periwound moist. Wound measures 1.0 cm x 1.2 cm. 4. Right abdomen, lateral to wound 3: Intertrigo wound, present on admission. Wound bed has 100% yellow tissue. No odor, scant serous drainage. Periwound moist. Wound measures 0.4 cm x 0.5 cm. 5. Right abdomen, superior to wound 3: Intertrigo wound, present on admission. Wound bed has 100% yellow tissue. No odor, scant serous drainage. Periwound moist. Wound measures 0.5 cm x 0.9 cm. Recommend: Cleanse wounds with normal saline. Pat dry. Apply moisture barrier cream to wounds and hien-wounds. Apply hydrogel to any portion of wound beds not covered by moisture barrier cream. Place foam dressing onto wound. Insert Inter-Dry AG dressing, cut to to size, into abdominal fold. Perform wound care daily, and as needed for dressing soiling or dislodgment. Replace Inter-Dry AG dressings every 5 days, and as needed for dressing soiling or dislodgment. 6. Right proximal posterior thigh: Wound, present on admission. Wound bed has 100% dull red tissue. No odor, no drainage. Periwound intact. Wound measures 1.0 cm x 0.7 cm. Recommend: Cleanse wound with normal saline. Pat dry. Apply moisture barrier cream to wound and hien-wound. Apply hydrogel to any portion of wound bed not covered by moisture barrier cream. Place foam dressing onto wound. Perform wound care daily, and as needed for dressing soiling or dislodgment. 7. Left lateral breast fold: Red excoriations, present on admission. Site measures 3.4 cm x 7.0 cm. Recommend: Cleanse involved area with mild soap and water. Pat dry. Apply moisture barrier cream to involved area. Insert Inter-Dry AG dressing, cut to to size, into Breast fold. Perform wound care daily, and as needed for dressing soiling or dislodgment. Replace Inter-Dry AG dressings every 5 days, and as needed for dressing soiling or dislodgment. 8. Left lateral breast fold, medial to wound 7: Intertrigo wound, present on admission. Wound bed has 100% dull pink tissue. No odor, no drainage. Periwound intact. Wound measures 1.7 cm x 1.5 cm. Recommend: Cleanse wound with normal saline. Pat dry. Apply moisture barrier cream to wound and hien-wound. Apply hydrogel to any portion of wound bed not covered by moisture barrier cream. Place foam dressing onto wound. Perform wound care daily, and as needed for dressing soiling or dislodgment. 9. Left lateral hip: Wound, present on admission. Wound bed has 95% yellow tissue, 5% pink tissue. No odor, no drainage. Periwound intact. Wound measures 0.5 cm x 0.7 p.m. Recommend: Cleanse wound with normal saline. Pat dry. Apply moisture barrier cream to wound and hien-wound. Apply hydrogel to any portion of wound bed not covered by moisture barrier cream. Place foam dressing onto wound. Perform wound care daily, and as needed for dressing soiling or dislodgment. Also recommend: Reposition patient every 2 hours with pillow support, and off-load pressure areas with pillows for pressure re-distribution. Offload, elevate and float bilateral heels with one pillow lengthwise under each extremity at all times. Perform skin care and monitor skin integrity Q shift. Use moisture barrier cream on buttocks and other moisture susceptible areas QID and as needed for soiling. Place patient on a low air-loss mattress.
--- NOTE | 2017-12-25 11:00 | NUR ---
WOUND CARE EVALUATION WITH WOUND SOCIAL SERVICE ASSISTANT TOÑO
[2017-12-25 12:00] VITALS: BP_SYST 132
--- NOTE | 2017-12-25 12:30 | NUR ---
BLOOD SUGAR 136, NO COVERAGE NEEDED PER SLIDING SCALE. PT LAYING IN BED RESTING, AWAITING LUNCH TRAY
--- NOTE | 2017-12-25 14:15 | NUR ---
ROUNDS PT SITTING UP IN BED, DAUGHTER AND SON IN LAW AT BEDSIDE TALKING WITH PATIENT. FAMILY UPDATED ON PT STATUS AND PLAN OF CARE, EDUCATED REGARDING ISOLATION PRECAUTIONS, AT BEDSIDE WITH ISOLATION GOWNS ON. PT HAS NASAL CANULA IN PLACE, NO S/S OF ACUTE DISTRESS OR DISCOMFORT AT THIS TIME, CALL LIGHT WITHIN REACH, WILL CONTINUE TO MONITOR PT CLOSELY
[2017-12-25 16:00] VITALS: BP_SYST 139
--- NOTE | 2017-12-25 16:43 | NUR ---
BLOOD SUGAR 132, NO COVERAGE NEEDED PER SLIDING SCALE. PT ASKED HOW HER APPETITE HAS BEEN TODAY, PT STATES SHE ISNT THAT HUNGRY BUT IF SHE WAS IT WOULDNT MATTER BECAUSE SHE IS HAVING DIFFICULTY OPENING PACKAGES AND NO ONE IS HELPING HER. PT EDUCATED THAT RN WAS UNAWARE SHE COULDNT OPEN THE JUICE AND SUGAR PACKAGES, STAFF TO ASSIST FROM NOW ON. WILL FOLLOW UP
[2017-12-25] MEDS: SIMVASTATIN 10 MG TABLET PO SCH (17:40)
[2017-12-25] MEDS: GABAPENTIN 300 MG CAPSULE PO SCH (17:40)
--- NOTE | 2017-12-25 18:45 | NUR ---
CLOSING NOTE PT ASSISTED TO BED MARTIN, CLEANED AND REPOSITIONED. NASAL CANULA IN PLACE, IVF INFUSING AT ORDERED RATE. ALL NEEDS ATTENDED TO THROUGHOUT SHIFT. SAFETY/ ISOLATION/ ASPIRATION PRECAUTIONS MAINTAINED. CALL LIGHT WITHIN REACH, WILL GIVE REPORT TO FOLLOWING SHIFT
[2017-12-25 21:00] VITALS: BP_SYST 136
--- NOTE | 2017-12-25 22:25 | NUR ---
PATIENT AWAKE BED MARTIN GIVEN OFF LOAD WITH PILLOWS URINE CLEAR YELLOW COLOR ON NASAL CANNULA 2 LITERS 02 SAT 96 %
[2017-12-25] MEDS: NACL 0.9% 1,000 ML IV SCH (22:44)
[2017-12-25] MEDS: HYDROcodone/ACETAMIN 10-325 MG TAB PO PRN (22:44)
--- NOTE | 2017-12-26 | NUR ---
NORCO 10/325 MG PO ADMINISTER FOR GENERAL PAIN & HELPFUL .
--- NOTE | 2017-12-26 00:15 | NUR ---
BLOOD SUGAR 152 MG DL TWO UNITS OF INSULIN , PER SLIDING SCALE PATIENT SIPPING ON APPLE JUICE PO / .
[2017-12-26] MEDS: IPRATROPIUM/ALBUTEROL SULFATE 3 ML AMPUL.NEB (DUONEB) INH SCH ×4 (00:54→19:59)
--- NOTE | 2017-12-26 01:11 | NUR ---
Hourly Rounding patient resting on Bi Pap machine HOB elevated chest movement symmetrical assist for position change tolerated .
[2017-12-26 01:12] VITALS: BP_SYST 115
--- NOTE | 2017-12-26 02:18 | NUR ---
Turn & Reposition patient place on bed hathaway , urination yellow clear out put noted , activity tolerated .
--- NOTE | 2017-12-26 06:04 | NUR ---
patient taken off Bi Papa , on NC @ 2 lpm TURN & REPOSITION , BED MARTIN as needed kept clean and dry OPTIFOAM DSD , CHANGED to hien area & left upper thigh patient awake and alert , sips of H2O tolerating .
[2017-12-26 06:39] LABS: ANION GAP 6 (5-15); CALCIUM 8.8 mg/dL (8.4-11.0); CHLORIDE 104 mmol/L (98-107); CREATININE 1.37 mg/dL (0.55-1.30); GLUCOSE 118 mg/dL (70-99); POTASSIUM 4.2 mmol/L (3.5-5.1); SODIUM SERUM 141 mmol/L (136-145); UREA NITROGEN, BLOOD 74 mg/dL (8-21)
[2017-12-26 06:49] LABS: ALANINE AMINOTRANSFERASE 19 U/L (12-78); ALBUMIN 2.8 g/dL (3.4-4.8); ASPARTATE AMINOTRANSFERASE 25 U/L (10-37); TOTAL BILIRUBIN 0.6 mg/dL (0.0-1.0)
[2017-12-26 07:18] LABS: EOSINOPHILS # (AUTO) 0.1 K/uL (0.0-0.4); EOSINOPHILS % (AUTO) 2.6 % (0.0-4.0); HEMATOCRIT 37.2 % (36-48); HEMOGLOBIN 12.1 g/dL (12.0-16.0); LYMPHOCYTES % (AUTO) 22.8 % (20.5-51.5); MEAN CORPUSCULAR HEMOGLOBIN 33 pg (27-31); MEAN CORPUSCULAR HGB CONC 33 % (32-36); MEAN CORPUSCULAR VOLUME 101 fL (79.0-98.0); MONOCYTES # (AUTO) 0.5 K/uL (0.0-1.0); MONOCYTES % (AUTO) 11.4 % (1.7-9.3); NEUTROPHILS # (AUTO) 2.6 K/uL (1.8-7.7); NEUTROPHILS % (AUTO) 62.2 % (40.0-70.0); PLATELET COUNT (AUTO) 117 K/uL (130-430); RED BLOOD CELL COUNT(AUTO) 3.68 MIL/uL (4.2-6.2); RED CELL DISTRIBUTION WIDTH 14.3 % (9.0-15.0); WHITE BLOOD COUNT (AUTO) 4.2 K/uL (4.8-10.8)
--- NOTE | 2017-12-26 07:59 | NUR ---
INITIAL NOTE PT AWAKE, ALERT, NO S/S OF ACUTE DISTRESS OR COMPLAINT OF PAIN, NASAL CANULA IN PLACE WITH O2 AT 2 LITERS. IVF INFUSING AT ORDERED RATE, NO S/S OF INFILTRATION NOTED. CATIE MATTRESS NOTE AND FUNCTIONING PROPERLY. PLAN OF CARE DISCUSSED, PT VERBALIZED UNDERSTANDING. SAFETY, ISOLATION, ASPIRATION PRECAUTIONS IN PLACE, CALL LIGHT WITHIN REACH, WILL FOLLOW UP
[2017-12-26 08:12] VITALS: BP_SYST 103
--- NOTE | 2017-12-26 09:30 | NUR ---
MED PASS/ DR TURNER MAKING ROUNDS PT NOTED TO BE VOMITING, NAUSEAS. EMESIS IS FLUID AND PHLEGM. DR TURNER AT BEDSIDE AND AWARE OF PT EMESIS, MD ORDERED ZOFRAN AND COUGH SUPPRESSANT. WILL FOLLOW UP
[2017-12-26] MEDS: MUPIROCIN 2% TOPICAL OINTMENT 22 GM NS SCH ×2 (09:32→20:46)
[2017-12-26] MEDS: CITALOPRAM HYDROBROMIDE 20 MG TABLET PO SCH (09:32)
[2017-12-26] MEDS: DOXYCYCLINE HYCLATE 100 MG CAPSULE PO SCH ×2 (09:32→20:47)
[2017-12-26] MEDS: METOPROLOL TARTRATE 25 MG TABLET PO SCH ×2 (09:33→20:47)
[2017-12-26] MEDS: ENOXAPARIN SODIUM 30 MG/0.3 ML SYRINGE SUBCUT SCH (09:34)
[2017-12-26] MEDS ORDERED: guaiFENesin/DEXTROMETHORPHAN 10 ML UDC PO PRN (10:00)
[2017-12-26] MEDS ORDERED: ONDANSETRON HCL 4 MG/2 ML VIAL IVP PRN (10:00)
--- NOTE | 2017-12-26 11:30 | NUR ---
BLOOD SUGAR 100, NO COVERAGE NEEDED PER SLIDING SCALE. PT STATES SHE HASNT BEEN EATING VERY MUCH, HAS DECREASED APPETITE. WILL ENCOURAGE SMALL, NO SUGAR SNACK THROUGHOUT DAY AND MONITOR
[2017-12-26] MEDS: SODIUM CHLORIDE 0.65% NASAL SPRAY NS SCH ×3 (11:53→20:46)
[2017-12-26 12:00] VITALS: BP_SYST 108
--- NOTE | 2017-12-26 12:46 | NUR ---
Electrician Outside: DCP faxed pt referral to [facility] p [phone]); rodolfo Dennison pt accepted back room 35C. Addendum: 12/26/17 at 1539 by Rani Ugalde DP DCP arranged transportation with Andela ([phone]) to [facility] p [phone]), nurse to nurse [phone] Addendum: 12/26/17 at 1541 by Rani Ugalde DP 6:00pm cigar packer and picker
--- NOTE | 2017-12-26 13:16 | NUR ---
RT NOTES Pt. to 1L O2 per titration order. No adverse reactions noted. Will monitor pt. Addendum: 12/26/17 at 1414 by Malina Lea RT Amended: Links added.
--- NOTE | 2017-12-26 13:45 | NUR ---
ROUNDS PT LAYING IN SEMI FOWLERS, RESTING AFTER DINNER. NO FURTHER EPISODES OF EMESIS SINCE ZOFRAN ADMINISTERED, PT STATES IT HELPED. PT WAS REPOSITIONED AFTER LUNCH BY FURNITURE DESIGNER, CALL LIGHT WITHIN REACH, WILL FOLLOW UP
[2017-12-26] MEDS: NACL 0.9% 1,000 ML IV SCH (14:12)
--- NOTE | 2017-12-26 15:25 | NUR ---
DR WIGGINS AT BEDSIDE, PT ASSESSED, RECEIVED NEW ORDER FOR DISCHARGE BACK TO [facility], DR WIGGINS CALLED PT DAUGHTER ELIE TO MAKE AWARE OF DISCHARGE AND PATIENT STATUS. DAUGHTER AGREED WITH DISCHARGE. CASE MANAGEMENT ALREADY ARRANGED ROOM FOR PATIENT, SPOKE WITH ESTEPHANIE FROM CASE MANAGEMENT TO MAKE SURE RECEIVING FACILITY IS AWARE THAT PT IS IN ISOLATION FOR MRSA OF [place] SINCE 12/23, PT STILL HAVING NASAL ANTIBIOTIC OINTMENT APPLIED. ESTEPHANIE TO FOLLOW UP WITH TETE
[2017-12-26 16:00] VITALS: BP_SYST 133
--- NOTE | 2017-12-26 16:00 | NUR ---
REPORT GIVEN TO CANDIDA EPSTEIN AT [facility], PROVIDED WITH CALL BACK NUMBER IN CASE ANY FURTHER QUESTIONS
--- NOTE | 2017-12-26 16:08 | NUR ---
PER CHF DISCHARGE PROTOCOL, APPOINTMENT ARRANGED FOR PT PCP WITHIN 7 DAYS OF DISCHARGE CHF APPT DR: YADY HENDRICKS DATE: WEDNESDAY, JANUARY 03, 2018 TIME: 230 PM LOCATION: [address] [place] [id number]
--- NOTE | 2017-12-26 16:32 | NUR ---
BLOOD SUGAR 170, PT REFUSED INSULIN COVERAGE, PT STATES SHE JUST FINISHED EATING LUNCH ABOUT 2 HOURS AGO IF NOT LESS THAT WHY SUGAR HIGH, IT WILL BE FINE. WILL FOLLOW UP
--- NOTE | 2017-12-26 17:18 | NUR ---
WOUND CARE COMPLETE AND DISCHARGE PICTURES TAKEN, PT TOLERATED WELL, IV SITE REMOVED. PT READY FOR TRANSFER.
[2017-12-26] MEDS: GABAPENTIN 300 MG CAPSULE PO SCH (17:37)
[2017-12-26] MEDS: SIMVASTATIN 10 MG TABLET PO SCH (17:37)
[2017-12-26] MEDS: HYDROcodone/ACETAMIN 10-325 MG TAB PO PRN (17:37)
--- NOTE | 2017-12-26 18:29 | NUR ---
PAIN MANAGEMENT/ AWAITING DISCHARGE/ CLOSING NOTE PT SITTING UP IN BED, AWAKE, ALERT, READY FOR DISCHARGE. PT MEDICATED FOR PAIN PER REQUEST. NASAL CANULA IN PLACE. ALL NEEDS ATTENDED TO THROUGHOUT SHIFT, SAFETY/ ISOLATION/ASPIRATION PRECAUTIONS MAINTAINED. WILL GIVE REPORT TO FOLLOWING SHIFT
--- NOTE | 2017-12-26 18:55 | NUR ---
[facility]OP [facility] AT BEDSIDE WITH STANDARD AMBULANCE GURNEY, PT DOES NOT FIT ON STANDARD AMBULANCE GURNEY. VOLUNTEER SERVICES SUPERVISOR CRISTINA TO ARRANGE ALTERNATE FORM OF TRANSPORTATION. WILL GIVE REPORT FOLLOWING SHIFT
--- NOTE | 2017-12-26 19:28 | NUR ---
ALTERNATE TRANSPORTATION ARRANGED WITH [facility] ETA 10PM, PATIENT MADE AWARE. REPORT GIVEN TO FEDERICO EPSTEIN, ALSO MADE AWARE OF NEW PRINTED CIRCUIT BOARDS PLASMA ETCHER TIME.
--- NOTE | 2017-12-26 19:50 | NUR ---
Received report from day nurse per SBAR. No acute distress or SOB noted. Patient on 2L NC. Patient is ready and waiting for transport to different hospital. All needs met at this time.
--- NOTE | 2017-12-26 21:15 | NUR ---
TRANSFER OF CARE: RECEIVED REPORT FROM TETE ARMENDARIZ. PATIENT AWAKE ORIENTED X3. [facility]IT[facility]. DENIES PAIN NOR SOB. ON O2 2 LITER PER N/C.
--- NOTE | 2017-12-26 21:55 | NUR ---
[facility] AMBULANCE STAFF HERE FOR RIGHT SIZE OF DEEP.
--- NOTE | 2017-12-26 22:15 | NUR ---
GRADER GREEN MEAT AB GAVE REPORT TO SUZY ,AMBULANCE EMT. CHECKED PATIENT ,DRY AND COMFORTABLE,OLD ID BAND REMOVED REPLACED TO ARM BAND WITH NAME AND DATE OF , TELE BOX REMOVE WELL.
--- NOTE | 2017-12-26 22:30 | NUR ---
DISCHARGE/TRANSFER: PATIENT DISCHARGE FROM [facility] TO [facility] FOR FURTHER CARE VIA S [facility] AMBULANCE WITH OXYGEN. DISCHARGE NECESSARY PAPERS INSIDE ENVELOPE AND CURRENT BELONGINGS GIVEN TO SUZY AND STAFF.HAS 2 HEARING AIDS WITH PATIENT ,HEARING CASE ,CELLPHONE AND [employer] FINANCE OFFICER INSIDE SMALL PRINTED BAG . GREEN BLANKET WITH PATIENT. 2 STAFF LOOKED FOR A SMALL PILLOW. CHECKED ADMIT LISTS NOT PRESENT. INFORMED PATIENT ,SAID ITS OKAY LONG I GO WITH A PILLOW .
== END 2017-12-26 22:40 | DRG 682 ==
LOC: SED 01:24 → STU 04:21
PROVIDERS: ADMIT Internal Medicine; ATTEND Internal Medicine
PROC: 5A09357 Assistance with Respiratory Ventilation, Less than 24 Consecutive Hours, Continuous Positive Airway Pressure (ICD-10-PCS; principal; 2017-12-25)
PROC: 5A09357 Assistance with Respiratory Ventilation, Less than 24 Consecutive Hours, Continuous Positive Airway Pressure (ICD-10-PCS; 2017-12-26)
DX: N17.0 Acute kidney failure with tubular necrosis (principal); J96.22 Acute and chronic respiratory failure with hypercapnia; I13.0 Hypertensive heart and chronic kidney disease with heart failure and stage 1 through stage 4 chronic kidney disease, or unspecified chronic kidney disease; Z68.45 Body mass index [BMI] 70 or greater, adult; E44.1 Mild protein-calorie malnutrition; E66.2 Morbid (severe) obesity with alveolar hypoventilation; E11.22 Type 2 diabetes mellitus with diabetic chronic kidney disease; E78.5 Hyperlipidemia, unspecified; F32.9 Major depressive disorder, single episode, unspecified; I50.9 Heart failure, unspecified; T50.2X5A Adverse effect of carbonic-anhydrase inhibitors, benzothiadiazides and other diuretics, initial encounter; N18.9 Chronic kidney disease, unspecified; Z79.01 Long term (current) use of anticoagulants; Z79.899 Other long term (current) drug therapy; Z87.891 Personal history of nicotine dependence; Z90.49 Acquired absence of other specified parts of digestive tract; Z90.710 Acquired absence of both cervix and uterus; Y92.89 Other specified places as the place of occurrence of the external cause; Z88.0 Allergy status to penicillin; Z88.2 Allergy status to sulfonamides; Z88.1 Allergy status to other antibiotic agents; Z22.322 Carrier or suspected carrier of Methicillin resistant Staphylococcus aureus; Z74.01 Bed confinement status
CPT/HCPCS: 36415; 36600; 71045; 76770; 80048; 80053; 81003; 82550-TC; 82803-TC; 82962; 83605; 83735-TC; 83880; 84484; 85025; 85379; 85610-TC; 85730-TC; 87040-TC; 87081; 93005; 93306; 93971; 94640; 94660; 94760; 96360; 99285; J1650; J1815; J1940; J2405; J7030; J7620; Q0163